=== PATIENT | male | born 1980 | race Caucasian/White ===

== ENCOUNTER → 2016-07-07 | Outpatient (CLI) | payer OTHER ==
[2016-07-07 18:24] LABS: BLOOD UREA NITROGEN 12 mg/dl (7-18); BUN/CREATININE RATIO 13.4 (10-20); CALCIUM 9.2 mg/dl (8.5-10.1); CARBON DIOXIDE 30 mmol/L (21-32); CHLORIDE 104 mmol/L (98-107); CREATININE 0.86 mg/dl (0.60-1.40); GLUCOSE 84 mg/dl (70-99); POTASSIUM 4.2 mmol/L (3.5-5.1); SODIUM 140 mmol/L (136-145)
[2016-07-07 18:37] LABS: TESTOSTERONE,TOTAL 27.8 ng/dl
[2016-07-07 18:38] LABS: PROLACTIN 4.48 ng/mL
== END | disposition home or self-care (01) ==
LOC: C.LABBFT 15:34
PROVIDERS: ATTEND Internal Medicine
DX: Z00.00 Encounter for general adult medical examination without abnormal findings (principal); F64.0 Transsexualism; Z79.890 Hormone replacement therapy; Z79.899 Other long term (current) drug therapy

== ENCOUNTER → 2016-11-29 | Outpatient (CLI) | payer OTHER ==
[2016-11-29 17:57] LABS: BASO % 0.6 %; BASO ABS # 0.05 K/uL (0-0.2); COMPLETE YES; EOS % 0.5 %; IG% 0.1 %; LYMPH % 25.5 %; LYMPH ABS # 1.99 K/uL (1.2-3.4); MEAN CELL VOLUME 93.9 fL (80-100); MEAN CORPUSCULAR HEMOGLOBIN 34.1 pg (25-34); MEAN CORPUSCULAR HGB CONC 36.3 g/dl (32-36); MEAN PLATELET VOLUME 10.1 fL (7.4-10.4); MONO % 6.2 %; NEUT % 67.1 %; PLATELET COUNT 309 K/uL (130-400); RED BLOOD COUNT 4.58 M/uL (4.7-6.1)
[2016-11-29 18:16] LABS: BLOOD UREA NITROGEN 16 mg/dl (7-18); BUN/CREATININE RATIO 18.2 (10-20); CALCIUM 9.7 mg/dl (8.5-10.1); CARBON DIOXIDE 28 mmol/L (21-32); CHLORIDE 101 mmol/L (98-107); GLUCOSE 80 mg/dl (70-99); POTASSIUM 4.1 mmol/L (3.5-5.1); SODIUM 136 mmol/L (136-145)
[2016-11-29 18:44] LABS: LYME DISEASE AB IGG NEG (NEG); LYME DISEASE AB IGM NEG (NEG)
[2016-11-29 21:43] LABS: CYCLIC CITRULLINATED PEPT IGG < 0.40 U/mL (0-4.99)
[2016-11-29 21:48] LABS: PROLACTIN 7.15 ng/mL; TESTOSTERONE,TOTAL 250.2 ng/dl
== END | disposition home or self-care (01) ==
LOC: C.LABBFT 13:14
PROVIDERS: ATTEND Internal Medicine
DX: M25.50 Pain in unspecified joint (principal); F64.0 Transsexualism; Z79.890 Hormone replacement therapy; Z79.899 Other long term (current) drug therapy

== ENCOUNTER → 2017-02-22 | Outpatient (CLI) | payer OTHER ==
[2017-02-22 17:52] LABS: BLOOD UREA NITROGEN 12 mg/dl (7-18); BUN/CREATININE RATIO 11.3 (10-20); CALCIUM 9.7 mg/dl (8.5-10.1); CARBON DIOXIDE 27 mmol/L (21-32); CHLORIDE 101 mmol/L (98-107); CREATININE 1.02 mg/dl (0.60-1.40); GLUCOSE 89 mg/dl (70-99); POTASSIUM 4.2 mmol/L (3.5-5.1); SODIUM 135 mmol/L (136-145)
== END | disposition home or self-care (01) ==
LOC: C.LABBFT 12:43
PROVIDERS: ATTEND Internal Medicine
DX: F64.0 Transsexualism (principal); Z79.890 Hormone replacement therapy; Z79.899 Other long term (current) drug therapy

== ENCOUNTER → 2017-04-17 | Outpatient (CLI) | payer OTHER ==
--- NOTE | 2017-04-17 16:11 | DIAGNOSTIC IMAGING REPORT ---
R WRIST MIN 3 VIEWS ROUTINE CLINICAL HISTORY: M25.531 Chronic pain of both [id number] Bilateral hand painM7 pain COMPARISON: None. DISCUSSION: The bones and joint spaces appear intact. There is no evidence of fracture, dislocation or bony disease. There is no evidence for soft tissue swelling. IMPRESSION: Negative study. The above report was generated using voice recognition software. It may contain grammatical, syntax or spelling errors. Electronically signed by: Uriel James M.D. 04/17/2017 4:09 PM Dictated Date/Time: 04/17/2017 4:09 PM
--- NOTE | 2017-04-17 16:14 | DIAGNOSTIC IMAGING REPORT ---
L-SPINE MIN 4 VIEWS ROUTINE HISTORY: M25.531 Chronic pain of both [id number] Bilateral hand painM7 COMPARISON: None. FINDINGS: There is no fracture. No subluxation. Disc spaces are preserved. IMPRESSION: No fracture or subluxation within the lumbar spine. The above report was generated using voice recognition software. It may contain grammatical, syntax or spelling errors. Electronically signed by: Uriel James M.D. 04/17/2017 4:13 PM Dictated Date/Time: 04/17/2017 4:12 PM
--- NOTE | 2017-04-17 16:17 | DIAGNOSTIC IMAGING REPORT ---
L WRIST MIN 3 VIEWS ROUTINE CLINICAL HISTORY: M25.531 Chronic pain of both [id number] Bilateral hand painM7 pain COMPARISON: None. DISCUSSION: The bones and joint spaces appear intact. There is no evidence of fracture, dislocation or bony disease. There is no evidence for soft tissue swelling. IMPRESSION: Negative study. The above report was generated using voice recognition software. It may contain grammatical, syntax or spelling errors. Electronically signed by: Uriel James M.D. 04/17/2017 4:16 PM Dictated Date/Time: 04/17/2017 4:16 PM
--- NOTE | 2017-04-17 16:21 | DIAGNOSTIC IMAGING REPORT ---
L KNEE 1 OR 2 VIEWS ROUTINE HISTORY: 37 years-old Male M25.531 Chronic pain of both [id number] Bilateral hand painM7 chronic knee pain COMPARISON: Right knee radiographs of same day TECHNIQUE: 2 views of the left knee FINDINGS: No acute fracture, subluxation or significant degenerative changes. No intra-articular loose body or large joint effusion. IMPRESSION: No acute fracture. The above report was generated using voice recognition software. It may contain grammatical, syntax or spelling errors. Electronically signed by: Yury Wise M.D. 04/17/2017 4:19 PM Dictated Date/Time: 04/17/2017 4:18 PM
--- NOTE | 2017-04-17 16:23 | DIAGNOSTIC IMAGING REPORT ---
R KNEE 1 OR 2 VIEWS ROUTINE HISTORY: 37 years-old Male M25.531 Chronic pain of both [id number] Bilateral hand painM7 COMPARISON: Left knee radiographs of same day TECHNIQUE: 2 views of the right knee FINDINGS: Fabella is noted. There is no acute fracture, subluxation or significant degenerative changes. No intra-articular loose body, soft tissue swelling or large joint effusion. IMPRESSION: No acute fracture or significant degenerative changes. The above report was generated using voice recognition software. It may contain grammatical, syntax or spelling errors. Electronically signed by: Yury Wise M.D. 04/17/2017 4:22 PM Dictated Date/Time: 04/17/2017 4:21 PM
--- NOTE | 2017-04-17 16:38 | DIAGNOSTIC IMAGING REPORT ---
L HAND MIN 3 VIEWS ROUTINE, R HAND MIN 3 VIEWS ROUTINE HISTORY: 37 years-old Male M25.531 Chronic pain of both [id number] Bilateral hand painM7 chronic bilateral hand pain COMPARISON: Bilateral wrist radiographs of same day TECHNIQUE: 3 views of the bilateral hands for a total of 6 images FINDINGS: LEFT: No acute fracture, subluxation or significant degenerative changes. Soft tissues are unremarkable without opaque foreign body. RIGHT: No acute fracture, subluxation or significant degenerative changes. No opaque foreign body or focal soft tissue swelling. IMPRESSION: 1. No acute fracture or subluxation. 2. No significant degenerative changes. The above report was generated using voice recognition software. It may contain grammatical, syntax or spelling errors. Electronically signed by: Yury Wise M.D. 04/17/2017 4:37 PM Dictated Date/Time: 04/17/2017 4:35 PM
--- NOTE | 2017-04-17 16:38 | DIAGNOSTIC IMAGING REPORT ---
L HAND MIN 3 VIEWS ROUTINE, R HAND MIN 3 VIEWS ROUTINE HISTORY: 37 years-old Male M25.531 Chronic pain of both [id number] Bilateral hand painM7 chronic bilateral hand pain COMPARISON: Bilateral wrist radiographs of same day TECHNIQUE: 3 views of the bilateral hands for a total of 6 images FINDINGS: LEFT: No acute fracture, subluxation or significant degenerative changes. Soft tissues are unremarkable without opaque foreign body. RIGHT: No acute fracture, subluxation or significant degenerative changes. No opaque foreign body or focal soft tissue swelling. IMPRESSION: 1. No acute fracture or subluxation. 2. No significant degenerative changes. The above report was generated using voice recognition software. It may contain grammatical, syntax or spelling errors. Electronically signed by: Yury Wise M.D. 04/17/2017 4:37 PM Dictated Date/Time: 04/17/2017 4:35 PM
[2017-04-17 17:36] LABS: BLOOD UREA NITROGEN 19 mg/dl (7-18); CALCIUM 9.8 mg/dl (8.5-10.1); CARBON DIOXIDE 28 mmol/L (21-32); CREATININE 0.87 mg/dl (0.60-1.40); GLUCOSE 87 mg/dl (70-99); POTASSIUM 4.3 mmol/L (3.5-5.1); SODIUM 134 mmol/L (136-145)
[2017-04-17 17:37] LABS: TRANSFERRIN 258 mg/dl (200-360)
== END | disposition home or self-care (01) ==
LOC: C.RAD1850 15:06
PROVIDERS: ATTEND Internal Medicine Rheumatology
DX: M79.641 Pain in right hand (principal); M79.642 Pain in left hand; M25.561 Pain in right knee; M25.562 Pain in left knee; M25.531 Pain in right wrist; M25.532 Pain in left wrist; M41.9 Scoliosis, unspecified; F64.0 Transsexualism; Z79.890 Hormone replacement therapy; Z79.899 Other long term (current) drug therapy; Z51.81 Encounter for therapeutic drug level monitoring

== ENCOUNTER → 2017-05-08 | Outpatient (CLI) | payer OTHER | END | disposition home or self-care (01) | LOC: EDSEX → C.LAB1850 14:57 | PROVIDERS: ATTEND Internal Medicine Rheumatology | DX: M25.561 Pain in right knee (principal); M25.562 Pain in left knee ==

== ENCOUNTER → 2017-07-20 | Outpatient (CLI) | payer OTHER | END | disposition home or self-care (01) | LOC: C.PATHSPEC 10:34 | PROVIDERS: ATTEND Plastic Surgery | DX: D22.9 Melanocytic nevi, unspecified (principal) ==

== ENCOUNTER → 2017-07-28 | Outpatient (CLI) | payer OTHER ==
[2017-07-28 17:13] LABS: BLOOD UREA NITROGEN 15 mg/dl (7-18); CALCIUM 8.9 mg/dl (8.5-10.1); CARBON DIOXIDE 27 mmol/L (21-32); CREATININE 1.01 mg/dl (0.60-1.20); GLUCOSE 91 mg/dl (70-99); POTASSIUM 4.1 mmol/L (3.5-5.1); SODIUM 136 mmol/L (136-145)
[2017-07-28 17:24] LABS: PROLACTIN 6.33 ng/mL
== END | disposition home or self-care (01) ==
LOC: C.LABBFT 14:25
PROVIDERS: ATTEND Internal Medicine
DX: Z00.00 Encounter for general adult medical examination without abnormal findings (principal); L64.9 Androgenic alopecia, unspecified; Z79.890 Hormone replacement therapy; Z79.899 Other long term (current) drug therapy; Z51.81 Encounter for therapeutic drug level monitoring; F64.0 Transsexualism